=== PATIENT | female | born 1995 | race African-American/Black ===

== ENCOUNTER 2020-11-30 00:01 | Emergency (ER) | payer OTHER ==
[~2020-11-30] VITALS: Ht 165.1 cm; Wt 59.1 kg
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
[2020-11-30] MEDS ORDERED: traMADol 50 MG TABLET PO ONE (02:00)
[2020-11-30] MEDS ORDERED: DIPH,PERTUSS(ACELL),TET VAC/PF 0.5 ML SYRINGE. VAX IM ONE (02:00)
[2020-11-30 02:38] VITALS: BP 100/61
--- NOTE | 2020-11-30 02:54 | RAD ---
Right HAND, VIEWS 3 Indication: Reason: bite injury Findings: There is no acute fracture or dislocation. Bony articulations are normal. There is no bony erosion. Mineralization is normal. There is no radiographically apparent soft tissue swelling or radiopaque f oreign body. IMPRESSION: No acute fracture. Electronically signed by: Glenn Rivera MD (11/30/2020 2:51 AM) [facility]
== END 2020-11-30 02:50 | disposition home or self-care (01) ==
LOC: ER 00:01
DX: S61.451A Open bite of right hand, initial encounter (principal); R60.0 Localized edema; F17.200 Nicotine dependence, unspecified, uncomplicated; Z90.49 Acquired absence of other specified parts of digestive tract; X58.XXXA Exposure to other specified factors, initial encounter; Y93.89 Activity, other specified; Y92.89 Other specified places as the place of occurrence of the external cause; Y99.0 Civilian activity done for income or pay
CPT/HCPCS: 73130; 90471; 90715; 99285